=== PATIENT | male | born 2000 | race Caucasian/White ===

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

== ENCOUNTER → 2020-12-15 20:56 | Outpatient (CLI) | payer BC, SELFPAY ==
[2020-12-15 21:13] LABS: Chloride 101 mmol/L (98-107); Potassium 5.1 mmoL/L (3.5-5.1); Sodium 141 mmol/L (136-145)
[2020-12-15 21:16] LABS: Alanine Aminotransferase 41 U/L (12-78); Albumin Level 4.8 g/dl (3.5-5.0); Albumin/Globulin Ratio 1.7 (1.1-1.8); Alkaline Phosphatase 75 U/L (38-126); Anion Gap 15.1 mEq/L (5-15); Aspartate Amino Transferase 34 U/L (17-59); Bilirubin,Total 0.4 mg/dl (0.2-1.3); Blood Urea Nitrogen 13 mg/dl (9-20); Carbon Dioxide 30 mmol/L (22.0-30.0); Cholesterol 133 mg/dl (140-200); Estimated Glomerular Filt Rate 108 ml/min (>60); GFR (African American) 130 ML/MIN (>60); Globulin 2.9 g/dL (1.3-3.2); Total Protein,Serum 7.7 g/dl (6.3-8.2); Triglycerides 117 mg/dl (30-150); VLDL Cholesterol 23 mg/dL (0-40)
[2020-12-15 21:17] LABS: Calcium 9.9 mg/dl (8.4-10.2); Chol/HDL Ratio 2.5 (1-3.5); Glucose 62 mg/dl (74-100); HDL Cholesterol 53 mg/dl (40-60)
[2020-12-15 21:33] LABS: Basophils # 0.1 K/mm3 (0-0.2); Basophils % 0.9 % (0.1-2.0); Eosinophils # 0.2 K/mm3 (0.0-0.4); Eosinophils % 1.5 % (0.1-12.0); Hematocrit 49.1 % (42.0-52.0); Hemoglobin 16.1 g/dL (14.1-18.0); Lymphocytes # 3.6 K/mm3 (0.7-4.5); Lymphocytes % 32.6 % (10-50); Mean Corpuscular HGB Conc 32.8 g/dL (31.8-35.4); Mean Corpuscular Hemoglobin 29.1 pg (27.0-31.2); Mean Corpuscular Volume 88.9 fl (80-94); Mean Platelet Volume 8.7 fl (7.4-10.4); Monocytes # 0.8 K/mm3 (0.1-1.0); Monocytes % 7.5 % (1.7-9.3); Neutrophils # 6.3 K/mm3 (1.8-7.8); Neutrophils % 57.5 % (37.0-80.0); Platelet Count 339 K/mm3 (142-424); Red Blood Count 5.53 M/mm3 (4.60-6.20); Red Cell Distribution Width 13.5 % (11.5-17.5); Triiodothryronine (T3) Uptake 40 % (23.5-40.5); White Blood Count 10.9 K/mm3 (4.5-13.0)
[2020-12-15 21:34] LABS: Free Thyroxine Index 3.4 ug/dL (5.93-13.13); T4 (Thyroxine) 8.4 ug/dl (5.53-11.0)
[2020-12-15 21:47] LABS: Thyroid Stimulating Hormone 2.31 uIU/mL (0.465-4.68)
[2020-12-15 22:20] LABS: Direct LDL Cholesterol 60.71 mg/dL (100-129)
[2020-12-16 00:17] LABS: Hemoglobin A1C 5.5 % (4.0-6.0)
== END ==
PROVIDERS: Visit Provider Internal Medicine Adolescent Medicine
DX: E03.9 Hypothyroidism, unspecified (principal); E66.01 Morbid (severe) obesity due to excess calories; Z68.43 Body mass index [BMI] 50.0-59.9, adult
CPT/HCPCS: 80053; 80061; 83036; 84436; 84443; 84479; 85025